=== PATIENT | male | born 1995 | race Two or more races ===

== ENCOUNTER 2022-05-25 18:16 | Emergency (ER) | payer MEDICAID ==
[~2022-05-25] VITALS: Ht 175.3 cm; Wt 77.5 kg
[2022-05-25 19:03] VITALS: BP 116/82
[2022-05-25] MEDS ORDERED: ALBU108A5 IN (23:48)
== END 2022-05-25 23:48 | disposition home or self-care (01) ==
LOC: ER 18:16
DX: R06.02 Shortness of breath (principal); T59.811A Toxic effect of smoke, accidental (unintentional), initial encounter; Y92.89 Other specified places as the place of occurrence of the external cause
CPT/HCPCS: 71046; 93005

== ENCOUNTER 2022-10-10 08:40 | Emergency (ER) | payer MEDICAID ==
[~2022-10-10] VITALS: Ht 175.3 cm; Wt 79.9 kg
[~2022-10-10 08:40] MED LIST: ALBU108A5 IN
[2022-10-10 09:33] VITALS: BP 132/79
[2022-10-10] MEDS ORDERED: AUG875T PO (09:55)
[2022-10-10] MEDS ORDERED: TETANUS-DIPTH-ACEL PERTUSSIS 0.5ML SYR Tdap IM ONE (10:00)
== END 2022-10-10 10:09 | disposition home or self-care (01) ==
LOC: ER 08:40
DX: S41.151A Open bite of right upper arm, initial encounter (principal); W54.0XXA Bitten by dog, initial encounter; Y93.89 Activity, other specified; Y92.89 Other specified places as the place of occurrence of the external cause; Y99.8 Other external cause status
CPT/HCPCS: 90471; 90715